=== PATIENT | male | born 1965 | race Hispanic/Latino ===

== ENCOUNTER 2023-08-12 11:01 | Emergency (ER) | payer SELFPAY ==
[~2023-08-12] VITALS: Ht 175.3 cm; Wt 84.8 kg
[2023-08-12] MEDS ORDERED: ACETAMINOPHEN 500 MG TAB PO ONE (11:25)
[2023-08-12] MEDS ORDERED: METOCLOPRAMIDE HCL 10 MG/2 ML SDV IV ONE (11:25)
[2023-08-12] MEDS ORDERED: DiphenhydrAMINE HCL 50 MG/ML SDV IV ONE (11:25)
[2023-08-12] MEDS ORDERED: MAGNESIUM SULFATE HEPTAHYDRATE 50 ML IV ONE (11:25)
[2023-08-12 11:51] LABS: BASO% 0.3 % (0-3); EOS% 1.5 % (0-8); HEMATOCRIT 44.4 % (39.0-50.0); IMMATURE GRANULOCYTES 0.2 % (0.0-5.0); LYMPH% 45.1 % (15-41); MEAN CELL VOLUME 84.9 fL CALC (80.0-100.0); MEAN CORPUSCULAR HGB 28.7 pG CALC (26.0-32.0); MEAN CORPUSCULAR HGB CONC 33.8 g/dL CAL (32.0-36.0); MONO% 5.3 % (2-13); NEUT# 4.92 thou/uL (1.82-7.42); NEUT% 47.6 % (42-76); RED BLOOD COUNT 5.23 mill/uL (4.70-6.10); RED CELL DISTRI WIDTH 12.9 % (11.5-15.5)
[2023-08-12 11:57] LABS: GFR FOR AFR.AMER. > 60 ML/MIN (>=60 (CALC)); GFR OTHER RACES > 60 ML/MIN (>=60 (CALC))
[2023-08-12 12:12] LABS: ALBUMIN 4.4 g/dL (3.2-5.0); ALKALINE PHOSPHATASE 50 u/l (38-126); ANION GAP 11 (6-22 (CALC)); BILIRUBIN, TOTAL 0.4 mg/dL (0.2-1.3); BUN 18 mg/dL (9-20); BUN/CREATININE RATIO 22 (12-20 (CALC)); CARBON DIOXIDE 25 mmol/l (22-30); CHLORIDE 105 mmol/l (95-108); CREATININE 0.8 mg/dL (0.7-1.3); GFR FOR AFR.AMER. > 60 ML/MIN (>=60 (CALC)); GFR OTHER RACES > 60 ML/MIN (>=60 (CALC)); POTASSIUM 4.7 mmol/l (3.5-5.1); SGOT/AST 30 u/l (17-59); SODIUM 136 mmol/l (137-146); TOTAL PROTEIN 8.1 g/dL (6.3-8.2)
[2023-08-12 13:50] VITALS: BP 148/80
== END 2023-08-12 14:10 | disposition home or self-care (01) | DRG 305 ==
LOC: ED 11:01
PROVIDERS: Family Medicine
DX: I10 Essential (primary) hypertension (principal); E11.9 Type 2 diabetes mellitus without complications; T46.5X6A Underdosing of other antihypertensive drugs, initial encounter; Z91.128 Patient's intentional underdosing of medication regimen for other reason
CPT/HCPCS: J3475; Q9967

== ENCOUNTER 2023-08-23 06:44 | Observation (INO) | payer SELFPAY ==
[2023-08-23] VITALS (28 sets, daily range): BP systolic 121–211; BP diastolic 67–135
[~2023-08-23] VITALS: Ht 175.3 cm; Wt 106.8 kg
--- NOTE | 2023-08-23 06:44 | NUR ---
PATIENT ARRIVED VIA EMS, PATIENT IS NOTED TO HAVE MINIMAL LETHARGY/DROWSY BEHAVIOR, PATIENT WAS ASSESSED DUE TO REPORT OF NEW ONSET OF DIZZINESS, HEADACHE, AND (L) SIDED WEAKNESS WHEN ARISING THIS AM. PATIENT IS NOTED WITH A (R) SIDED FACIAL DROOP, (L) ARM AND LEG DRIFT, TINGLING/NUMBNESS TO (L) LEG AND (L) SIDE OF FACE, SPEECH IS MUMBLED, NO NOTED SLURRING WHEN PATIENT IS ASKED TO RAISE VOICE. 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 PATIENT CONNECTED WITH TELENUROLOGIST FOR FURTHER EVALUATION, AWAITING ALL FURTHER ORDERS/RESULTS AT THIS TIME.
[2023-08-23 06:59] LABS: BASO% 0.3 % (0-3); EOS% 2.9 % (0-8); HEMATOCRIT 42.1 % (39.0-50.0); HEMOGLOBIN 14.1 g/dl (14.0-18.0); IMMATURE GRANULOCYTES 0.4 % (0.0-5.0); LYMPH% 45.8 % (15-41); MEAN CELL VOLUME 84.5 fL CALC (80.0-100.0); MEAN CORPUSCULAR HGB 28.3 pG CALC (26.0-32.0); MEAN CORPUSCULAR HGB CONC 33.5 g/dL CAL (32.0-36.0); MONO% 6.3 % (2-13); NEUT# 4.36 thou/uL (1.82-7.42); NEUT% 44.3 % (42-76); RED BLOOD COUNT 4.98 mill/uL (4.70-6.10); RED CELL DISTRI WIDTH 12.8 % (11.5-15.5)
--- NOTE | 2023-08-23 07:00 | NUR ---
REPORT GIVEN TO ACE FINNEY AT THIS TIME, PATIENT CTA IN PROCESS, TELENEUROLOGIST COMPLETE, LABS DRAWN, IV PATENT, BG COMPLETE.
[2023-08-23] MEDS ORDERED: CLOPIDOGREL BISULFATE 75 MG/TAB TAB PO ONE (07:20)
[2023-08-23 07:42] LABS: URINE BILIRUBIN - DIPSTICK Negative (NEGATIVE); URINE BLOOD DIPSTICK Negative (NEGATIVE); URINE GLUCOSE - DIPSTICK >=1000 mg/dL (NEGATIVE); URINE KETONE Negative (NEGATIVE); URINE LEUK ESTERASE Negative (NEGATIVE); URINE NITRITE - DIPSTICK Negative (Negative); URINE PH 5.5 (4.5-8.0); URINE PROTEIN - DIPSTICK 100 mg/dL (NEG-TRACE); URINE SPECIFIC GRAVITY 1.025; URINE UROBILINOGEN - DIPSTICK 0.2 E.U./dL (0.2)
[2023-08-23 07:44] LABS: ALKALINE PHOSPHATASE 52 u/l (38-126); ANION GAP 13 (6-22 (CALC)); BUN 21 mg/dL (9-20); BUN/CREATININE RATIO 32 (12-20 (CALC)); CARBON DIOXIDE 23 mmol/l (22-30); CHLORIDE 104 mmol/l (95-108); CREATININE 0.7 mg/dL (0.7-1.3); GFR FOR AFR.AMER. > 60 ML/MIN (>=60 (CALC)); GFR OTHER RACES > 60 ML/MIN (>=60 (CALC)); POTASSIUM 4.3 mmol/l (3.5-5.1); SGOT/AST 28 u/l (17-59); SODIUM 135 mmol/l (137-146); TOTAL PROTEIN 7.4 g/dL (6.3-8.2)
[2023-08-23 07:44] LABS: URINE COLOR Yellow
[2023-08-23 07:46] LABS: BILIRUBIN, TOTAL 0.2 mg/dL (0.2-1.3); PROTHROMBIN TIME 9.9 SECONDS (9.0-12.5)
[2023-08-23 07:48] LABS: CALCULATED LDLCHOLESTEROL 123 mg/dL (62-129 (CALC)); CHOLESTEROL HDL RATIO 6.1 (<4.4 (CALC)); HDL CHOLESTEROL 31 mg/dL (39.0-59.0); TOTAL CHOLESTEROL 189 mg/dl (0-199); TOTAL TRIGLYCERIDES 177 mg/dl (0-149); VLDL CHOLESTROL 35 mg/dl (8-62 (CALC))
[2023-08-23 08:00] LABS: URINE RBC 0-2 RBC/hpf (0-5); URINE SQUAMOUS EPITHELIAL CELL RARE EPI/hpf (0-FEW)
--- NOTE | 2023-08-23 08:00 | NUR ---
PT IN ROOM RESTING WITH EYES CLOSED. SPOUSE IN ROOM AT BEDSIDE. PT APPEARS TO BE TIRED AND SLEEPING. PT IS SNORING. VSS, NAD. HAS NO COMPLAINTS AT THIS TIME. PT IS PENDING RESULTS BEFORE ADMISSION. MED REC IS COMPLETED. 350 CC OF URINE COLLECTED FROM PT. PT PASS DYSPHAGIA SCREENING. PT SWALLOWED WATER WITH NO ISSUES OR SIGNS OF CHOKING.
[2023-08-23 08:01] LABS: URINE MUCUS FEW hpf (NONE-FEW)
[2023-08-23] MEDS ORDERED: METFORMIN500 M2 PO (08:05)
[2023-08-23] MEDS ORDERED: GABAPENTIN300 M2 PO (08:06)
[2023-08-23] MEDS ORDERED: LISINOPRIL10 MG PO (08:07)
[2023-08-23] MEDS ORDERED: FARXIGA10 MG PO (08:08)
[2023-08-23] MEDS ORDERED: INSULIN REGULAR (HUMAN) 100 UNIT/ML INJ IV ONE (08:10)
--- NOTE | 2023-08-23 09:00 | NUR ---
PT IN ROOM RESTING WITH EYES CLOSED STILL SLEEPING AND SNORING. AND SON IN ROOM WITH PT. VSS, NAD. NO CONCERNS TO REPORT AT THIS TIME.
--- NOTE | 2023-08-23 09:30 | NUR ---
PT STATED HE IS HUNGRY AND WOULD LIKE SOMETHING TO EAT. PT DID PASS DYSPHAGIA SCREENING WITH THIS NURSE. PT APPEARS TO BE MORE ALERT AND SPEECH IS CLEAR. NO CONCERNS TO REPORT AT THIS TIME. VSS, NAD
--- NOTE | 2023-08-23 10:30 | NUR ---
PT IN ROOM AWAKE WITH FAMILY AT BEDSIDE. PT IS AWAKE AMD MORE ALERT. PT IS TALKATIVE AND SPEECH IS CLEAR. VSS, NAD. NO CONCERNS TO REPORT AT THIS TIME.
[2023-08-23] MEDS ORDERED: FAMOTIDINE 20 MG/TAB PO SCH (11:00)
--- NOTE | 2023-08-23 11:30 | NUR ---
PT IS ADMITTED TO [facility]. AWAITING TO GIVE REPORT TO NURSE TO MOVE PT UP. SABINE THE PT AND STANLEY THE OT IN ROOM TO ASSESS PT. PT BP WENT UP WHEN THEY CHANGED PT FROM LAYING POSITION TO SITTING POSITION. PT IS C/O FEELING VERY DIZZY, NAUSEA AND WAS DRY HEAVING.
--- NOTE | 2023-08-23 12:05 | NUR ---
PATIENT ARRIVED TO THE UNIT VIA STRETCHER ACCOMPAINED BY ER STAFF AND FAMILY. PATIENT ALERT AND ORIENTED X 3. NIH OF 1. STATES HE IS CURRENTLY NOT HAVING ANY PAIN. LUNGS CLEAR TO ASCULTAITON. BREATHING EVEN AND UNLABORED ON ROOM AIR. PATIENT UNABLE TO KEEP EYES OPEN FOR AN EXTENDED PERIOD OF TIME LIGHT BOTHERS HIM. PATIENT ORIENTED TO ROOM. CALL LIGHT NEXT TO RIGHT HAND. NO APPARENT DISTRESS NOTED. WILL CONTINUE WITH PLAN OF CARE.
--- NOTE | 2023-08-23 12:11 | NUR ---
PT TRANSPORTED TO FLOOR VIA WHEELCHAIR. ACCOMPANY PT TO FLOOR. ORTHOSTATIC VITALS DONE. NO CONCERNS TO REPORT AT THIS TIME.
--- NOTE | 2023-08-23 14:15 | NUR ---
PATIENT TAKEN TO MRI, SCREENING COMPLETED BY TECH.
[2023-08-23] MEDS ORDERED: DEXTROSE 250 ML IV PRN (15:30)
[2023-08-23] MEDS ORDERED: ACETAMINOPHEN 325 MG/TAB PO PRN (15:30)
--- NOTE | 2023-08-23 15:56 | NUR ---
PATIENT LYING IN BED RESTING. C/O [place] PAIN, WILL MEDICATE ACCORDING TO EMAR. NO OTHER ISSUES OR CONCERNS AT THIS TIME. WILL CONTINUE WITH PLAN OF CARE.
[2023-08-23] MEDS ORDERED: INSULIN LISPRO 100 UNITS/ML ML SC SCH (17:00)
[2023-08-23] MEDS ORDERED: ONDANSETRON HCl 4 MG/2 ML SDV IV PRN (19:35)
[2023-08-23] MEDS ORDERED: CLARIFY DOSE PO PRN ×2 (19:35)
--- NOTE | 2023-08-23 20:08 | NUR ---
PT REPORT NAUSEA AND VOMITING. PT MEDICATED ORDER PER SEP. PT IN BED FAMILY AT BEDSIDE. CALL LIGHT IN REACH AND BED IN LOWSET POSTION.
--- NOTE | 2023-08-23 20:10 | NUR ---
REDNESS NOTED TO RIGHT ARM. PT REPORT NO ITCHENESS OR BURMING.
[2023-08-23] MEDS ORDERED: MECLIZINE HCL 25 MG/TAB PO SCH (20:38)
[2023-08-23] MEDS ORDERED: KETOROLAC TROMETHAMINE 15 MG/ML SDV IV PRN (20:40)
[2023-08-23] MEDS ORDERED: ATORVASTATIN CALCIUM 40 MG/TAB PO SCH (21:00)
[2023-08-23] MEDS ORDERED: GABAPENTIN 300 MG/CAP PO SCH (21:00)
[2023-08-23] MEDS ORDERED: ENOXAPARIN SODIUM 40 MG/0.4 ML SYR SC SCH (21:00)
--- NOTE | 2023-08-24 00:12 | NUR ---
PT IN BED REPORT SLINGTY HEADACHE, PT MEDICATED PER MAR. NO OTHER NEEDS OR CONCERNS VOICED CALL LIGHT IN REACH AND EBD IN LOWST POSITION.
[2023-08-24 04:21] VITALS: BP 117/62
--- NOTE | 2023-08-24 04:42 | NUR ---
PT INI BED RESTING WITH EYES CLOSED BREATHING EVEN AND UNLABORED. NO S/S OF DISTRESS NOTED CALL LIGHT IN REACH ANDN BED IN LOWST POSITION.
[2023-08-24 05:36] LABS: BASO% 0.2 % (0-3); EOS% 1.5 % (0-8); HEMATOCRIT 42.5 % (39.0-50.0); HEMOGLOBIN 14.9 g/dl (14.0-18.0); IMMATURE GRANULOCYTES 0.2 % (0.0-5.0); LYMPH% 36.6 % (15-41); MEAN CORPUSCULAR HGB 29.1 pG CALC (26.0-32.0); MEAN CORPUSCULAR HGB CONC 35.1 g/dL CAL (32.0-36.0); MONO% 5.2 % (2-13); NEUT# 7.85 thou/uL (1.82-7.42); NEUT% 56.3 % (42-76); RED BLOOD COUNT 5.12 mill/uL (4.70-6.10); RED CELL DISTRI WIDTH 12.4 % (11.5-15.5)
[2023-08-24 05:48] LABS: ANION GAP 11 (6-22 (CALC)); BUN 13 mg/dL (9-20); BUN/CREATININE RATIO 18 (12-20 (CALC)); CALCULATED LDLCHOLESTEROL 148 mg/dL (62-129 (CALC)); CARBON DIOXIDE 26 mmol/l (22-30); CHLORIDE 104 mmol/l (95-108); CHOLESTEROL HDL RATIO 6.1 (<4.4 (CALC)); CREATININE 0.7 mg/dL (0.7-1.3); GFR FOR AFR.AMER. > 60 ML/MIN (>=60 (CALC)); GFR OTHER RACES > 60 ML/MIN (>=60 (CALC)); HDL CHOLESTEROL 36 mg/dL (39.0-59.0); SODIUM 137 mmol/l (137-146); TOTAL CHOLESTEROL 221 mg/dl (0-199); TOTAL TRIGLYCERIDES 180 mg/dl (0-149); VLDL CHOLESTROL 36 mg/dl (8-62 (CALC))
[2023-08-24 05:52] LABS: C-REACTIVE PROTEIN < 0.5 mg/dL (0-0.9)
[2023-08-24 07:12] VITALS: BP 115/61
[2023-08-24] MEDS ORDERED: LISINOPRIL 10 MG/TAB PO SCH (09:00)
[2023-08-24] MEDS ORDERED: CLOPIDOGREL BISULFATE 75 MG/TAB TAB PO SCH (09:00)
[2023-08-24 11:24] VITALS: BP 135/77
[2023-08-24] MEDS ORDERED: DiphenhydrAMINE HCL 50 MG/ML SDV IV SCH (12:00)
[2023-08-24 12:47] VITALS: BP 135/77
[2023-08-24] MEDS ORDERED: ATORVASTATIN CA40 MG PO (13:39)
[2023-08-24] MEDS ORDERED: PLAVIX75 MG PO (13:40)
[2023-08-24] MEDS ORDERED: MECLIZINE25 M1 PO (15:32)
[2023-08-24] MEDS ORDERED: MECLIZINE HCL 25 MG/TAB PO ONE (15:35)
== END 2023-08-24 15:00 | disposition home or self-care (01) | DRG 149 ==
LOC: ED 06:44 → ED-I 07:35 → ED 07:35 → MS2 09:59
PROVIDERS: Family Medicine; ADMIT Student in an Organized Health Care Education/Training Program; ATTEND Student in an Organized Health Care Education/Training Program
DX: R42 Dizziness and giddiness (principal); R53.1 Weakness; R51.9 Headache, unspecified; R20.2 Paresthesia of skin; R20.0 Anesthesia of skin; I10 Essential (primary) hypertension; E11.40 Type 2 diabetes mellitus with diabetic neuropathy, unspecified; L53.9 Erythematous condition, unspecified; Z79.84 Long term (current) use of oral hypoglycemic drugs; Z88.6 Allergy status to analgesic agent
CPT/HCPCS: G0378; J1650

== ENCOUNTER 2023-08-26 01:59 | Emergency (ER) | payer SELFPAY ==
[~2023-08-26] VITALS: Ht 175.3 cm; Wt 108.0 kg
[2023-08-26] VITALS (13 sets, daily range): BP systolic 116–149; BP diastolic 73–89
[~2023-08-26 01:59] MED LIST: ATORVASTATIN CA40 MG PO; FARXIGA10 MG PO; GABAPENTIN300 M2 PO; LISINOPRIL10 MG PO; MECLIZINE25 M1 PO; METFORMIN500 M2 PO; PLAVIX75 MG PO
[2023-08-26] MEDS ORDERED: KETOROLAC TROMETHAMINE 30 MG/ML SDV IV ONE (02:25)
[2023-08-26] MEDS ORDERED: ACETAMINOPHEN 500 MG TAB PO ONE (02:25)
[2023-08-26] MEDS ORDERED: ORPHENADRINE CITRATE 30 MG/ML AMP IV ONE (02:25)
[2023-08-26] MEDS ORDERED: DEXAMETHASONE SOD. PHOSPHATE 10 MG/ML VIAL IV ONE (02:25)
[2023-08-26] MEDS ORDERED: PROCHLORPERAZINE MALEATE 5 MG/TAB PO ONE (02:25)
[2023-08-26] MEDS ORDERED: DiphenhydrAMINE HCL 50 MG/ML SDV IV ONE (02:25)
[2023-08-26] MEDS ORDERED: SODIUM CHLORIDE 0.9% 1,000 ML IV ONE (02:25)
[2023-08-26 02:36] LABS: BASO% 0.3 % (0-3); EOS% 1.9 % (0-8); HEMATOCRIT 46.7 % (39.0-50.0); HEMOGLOBIN 15.9 g/dl (14.0-18.0); IMMATURE GRANULOCYTES 0.6 % (0.0-5.0); LYMPH% 38.6 % (15-41); MEAN CELL VOLUME 84.3 fL CALC (80.0-100.0); MEAN CORPUSCULAR HGB 28.7 pG CALC (26.0-32.0); MONO% 5.7 % (2-13); NEUT# 7.6 thou/uL (1.82-7.42); NEUT% 52.9 % (42-76); RED BLOOD COUNT 5.54 mill/uL (4.70-6.10); RED CELL DISTRI WIDTH 12.8 % (11.5-15.5)
[2023-08-26 02:49] LABS: ALBUMIN 4.6 g/dL (3.2-5.0); ALKALINE PHOSPHATASE 40 u/l (38-126); ANION GAP 14 (6-22 (CALC)); CARBON DIOXIDE 25 mmol/l (22-30); CHLORIDE 104 mmol/l (95-108); POTASSIUM 4.3 mmol/l (3.5-5.1); SGOT/AST 38 u/l (17-59); SODIUM 139 mmol/l (137-146); TOTAL PROTEIN 8.8 g/dL (6.3-8.2)
[2023-08-26 02:54] LABS: BILIRUBIN, TOTAL 0.5 mg/dL (0.2-1.3); BUN 19 mg/dL (9-20); BUN/CREATININE RATIO 27 (12-20 (CALC)); CREATININE 0.7 mg/dL (0.7-1.3); GFR FOR AFR.AMER. > 60 ML/MIN (>=60 (CALC)); GFR OTHER RACES > 60 ML/MIN (>=60 (CALC))
[2023-08-26] MEDS ORDERED: LASIX 20 MG TAB20 MG PO (03:44)
[2023-08-26] MEDS ORDERED: FIORICET PO (04:34)
== END 2023-08-26 04:50 | disposition home or self-care (01) | DRG 103 ==
LOC: ED 01:59
PROVIDERS: Family Medicine
DX: R51.9 Headache, unspecified (principal); I10 Essential (primary) hypertension; E11.9 Type 2 diabetes mellitus without complications; Z79.84 Long term (current) use of oral hypoglycemic drugs; Z88.6 Allergy status to analgesic agent; Z79.02 Long term (current) use of antithrombotics/antiplatelets